=== PATIENT | male | born 1930 | race Caucasian/White ===

== ENCOUNTER 2020-07-05 13:20 | Emergency (ER) | payer BC, OTHER ==
[2020-07-05] MEDS ORDERED: DIPHTH,PERTUSS(ACELL),TET 0.5 ML DISP.SYRIN IM ONE ×2 (13:36→14:01)
[2020-07-05 13:57] VITALS: BP 162/93; PULSE 86; TEMP 97.8; BMI 25.0
== END 2020-07-05 16:23 | disposition home or self-care (01) ==
LOC: FER 13:20
PROC: 0HQ0XZZ Repair Scalp Skin, External Approach (ICD-10-PCS; principal; 2020-07-05)
PROC: 3E0234Z Introduction of Serum, Toxoid and Vaccine into Muscle, Percutaneous Approach (ICD-10-PCS; 2020-07-05)
DX: S01.81XA Laceration without foreign body of other part of head, initial encounter (principal); S00.01XA Abrasion of scalp, initial encounter; S09.90XA Unspecified injury of head, initial encounter
CPT/HCPCS: 70450-TC; 72125-TC; 90715; 99284-25

== ENCOUNTER 2020-07-11 12:55 | Emergency (ER) | payer OTHER, BC ==
[2020-07-11 13:12] VITALS: BP 129/79; PULSE 97; TEMP 98.9; BMI 26.6
== END 2020-07-11 13:44 | disposition home or self-care (01) ==
LOC: FER 12:55
DX: T81.33XA Disruption of traumatic injury wound repair, initial encounter (principal); Z48.02 Encounter for removal of sutures
CPT/HCPCS: 99281-25